=== PATIENT | female | born 1985 | race African-American/Black ===

== ENCOUNTER 2024-02-09 14:23 | Outpatient (CLI) | payer MEDICARE, MEDICAID | END 2024-02-09 14:24 | disposition home or self-care (01) | LOC: CSHMAMMO 14:23 | PROVIDERS: ATTEND Physician Assistant | DX: Z12.31 Encounter for screening mammogram for malignant neoplasm of breast (principal) | CPT/HCPCS: 77063; 77067 ==

== ENCOUNTER 2025-01-27 08:58 | Outpatient (CLI) | payer MEDICARE, MEDICAID | END 2025-01-27 08:59 | disposition home or self-care (01) | LOC: CSHDTY/OP 08:58 | PROVIDERS: ATTEND Nurse Practitioner Family | DX: Z71.3 Dietary counseling and surveillance (principal); E11.9 Type 2 diabetes mellitus without complications; E28.2 Polycystic ovarian syndrome; E66.01 Morbid (severe) obesity due to excess calories; I10 Essential (primary) hypertension | CPT/HCPCS: 97802 ==